=== PATIENT | female | born 1970 | race Caucasian/White ===

== ENCOUNTER → 2019-01-04 | Outpatient (CLI) | payer OTHER | END | disposition home or self-care (01) | LOC: CFH 16:44 | PROVIDERS: ATTEND Nurse Practitioner Primary Care | DX: M19.071 Primary osteoarthritis, right ankle and foot (principal); M20.11 Hallux valgus (acquired), right foot ==

== ENCOUNTER 2019-02-09 09:13 | Outpatient (CLI) | payer BC, OTHER | END 2019-02-09 23:59 | disposition home or self-care (01) | LOC: CFH 09:13 → EDSTATUS 09:30 → CFH 23:59 | PROVIDERS: ATTEND Nurse Practitioner Primary Care | DX: Z12.31 Encounter for screening mammogram for malignant neoplasm of breast (principal) | CPT/HCPCS: 77063; 77067 ==